=== PATIENT | male | born 1995 | race Two or more races ===

== ENCOUNTER 2018-03-09 06:22 | Emergency (ER) | payer SELFPAY ==
[~2018-03-09] VITALS: Ht 177.8 cm; Wt 90.7 kg
[2018-03-09 06:43] VITALS: Ht 177.8 cm; Wt 90.7 kg
[2018-03-09 08:37] LABS: AMPHETAMINE QUAL UR POSITIVE (NEG <=1000)
[2018-03-09 09:22] LABS: BASOPHIL % 0.7 % (0-2); PLATELET COUNT 288 x10^3mcL (130-400); RED CELL DISTRIBUTION WIDTH 13.4 % (11.5-14.5)
[2018-03-09 09:26] LABS: CARBON DIOXIDE 28.7 mmol/L (21-32); CHLORIDE SERUM 95 mmol/L (98-107); CREATININE SERUM 0.9 mg/dL (0.7-1.3); GFR1 > 60 mL/min; GLUCOSE SERUM 109 mg/dL (74-106); POTASSIUM SERUM 3.1 mmol/L (3.5-5.1); SODIUM SERUM 134 mmol/L (136-145)
[2018-03-09 09:31] LABS: ALBUMIN 4.2 g/dL (3.4-5.0); ALKALINE PHOSPHATASE 103 U/L (46-116); ALT/SGPT 215 U/L (16-63); AST/SGOT 434 U/L (15-37); BILIRUBIN TOTAL 2.7 mg/dL (0.20-1.00); T4(THYROXINE) 11.6 ug/dL (4.7-13.3); TOTAL PROTEIN, SERUM 8.1 g/dL (6.4-8.2)
[2018-03-09 11:30] VITALS: BP 117/85
== END 2018-03-09 11:30 | disposition home or self-care (01) ==
LOC: ED 06:22
PROVIDERS: Emergency Medicine
DX: F15.10 Other stimulant abuse, uncomplicated (principal); E87.6 Hypokalemia; R94.5 Abnormal results of liver function studies
CPT/HCPCS: 36415; G0480; J1630; J2060; Q0092